=== PATIENT | female | born 1975 | race African-American/Black ===

== ENCOUNTER 2018-12-06 12:41 | Emergency (ER) | payer SELFPAY ==
[~2018-12-06] VITALS: Ht 162.6 cm; Wt 63.5 kg
--- OUTSIDE RECORDS SUMMARY | 2018-12-06 12:44 | XMS REPORT | Clinical Summary ---
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 Active INSULIN LISPRO Inject 10 0 PROTAMIN/LISPRO (HUMALOG Units under MIX 50-50 KWIKPEN SUBQ) the skin 3 (three) times a day. Active Problems Problem Noted Date Symptomatic anemia 01/22/2017 Immunizations Name Dates Previously Given Next Due Influenza Trivalent 04/20/2016 Family History Medical History Relation Name Comments Diabetes Father Hypertension Father Diabetes Mother Hypertension Mother Relation Name Status Comments Father Mother Social History Date Tobacco Use Types Packs/Day Years Used Never Smoker Smokeless Tobacco: Never Used Alcohol Use Drinks/Week oz/Week Comments No Sex Assigned at Date Recorded Not on file Industry Job Start Date Occupation Not on file Not on file Not on file Travel End Travel History Travel Start No recent travel history available. Last Filed Vital Signs Not on file Plan of Treatment Health Maintenance Due Date Last Done Comments CERVICAL CANCER SCREENING 1998 INFLUENZA VACCINE 02/18/2019 04/20/2016 Procedures Comments Procedure Name Priority Date/Time Associated Diagnosis TRANSFUSE RED BLOOD CELLS STAT 03/25/2018 5:37 PM CDT after 12/05/2017 Results * Transfuse RBC (03/25/2018 5:37 PM CDT) after 12/05/2017 Insurance Type Payer Benefit Subscriber ID Effective Phone Address Plan / Dates Group HMO/PPO [facility] xxxxxxxxx 2016-P THCARE resent CHOICE/CHO ICE + #[address] ([address] [place] [address] Advance Directives Patient has advance care planning documents on file. For more information, luis angel e contact: Silas Hall [phone] [place] [address]
[2018-12-06 13:24] LABS: CLARITY,URINE CLOUDY (CLEAR); COLOR,URINE YELLOW (YELLOW); KETONES,URINE NEGATIVE (NEGATIVE); LEUKOCYTE ESTERASE ,URINE 1+ (NEGATIVE); NITRITE,URINE NEGATIVE (NEGATIVE); PROTEIN,URINE DIPSTICK TRACE (NEGATIVE)
[2018-12-06 13:25] LABS: BILIRUBIN,URINE NEGATIVE (NEGATIVE); URINE UROBILINOGEN 0.2 mg/dL (0.2 - 1)
[2018-12-06 13:35] LABS: BACTERIA,URINE MODERATE /HPF; EPITHELIAL CELLS,URINE FEW /LPF; WBC,URINE (MAN) 21-50 /HPF (0-5)
[2018-12-06] MEDS ORDERED: CEPHALEXIN 500 MG CAP PO NR (14:15)
[2018-12-06] MEDS ORDERED: PYRIDIUM100 MG PO (14:21)
[2018-12-06] MEDS ORDERED: KEFLEX500 MG PO (14:21)
[2018-12-06 14:29] VITALS: BP 138/90
== END 2018-12-06 14:30 | disposition home or self-care (01) ==
LOC: ER 12:41
DX: R30.0 Dysuria (principal); N30.91 Cystitis, unspecified with hematuria
CPT/HCPCS: 36415; 81001; 82948; 99283